=== PATIENT | female | born 1950 | race Caucasian/White ===

== ENCOUNTER → 2016-09-25 | Outpatient (CLI) | payer MEDICARE ==
[~2016-09-25] MED LIST: AMIO200T PO; DIOV80TA4 PO; GLIM2TAB PO; GLYB1TAB50 PO; HYDR12.57 PO; JANT4TAB PO; JANT5TAB PO; JANT6TAB PO; LEVO.075 PO; LOSA100T PO; LOVA1TAB47 PO; LOVA20TA PO; VITA200012 PO; VITA200017 OR
[2016-09-25 08:26] LABS: INTERNATIONAL NORMALIZED RATIO 1.7 RATIO; PROTHROMBIN TIME - PATIENT 19.6 SEC (9.8-11.6)
== END ==
LOC: CLAB 07:42
PROVIDERS: ATTEND Internal Medicine Interventional Cardiology
DX: I48.2 Chronic atrial fibrillation (principal); Z79.01 Long term (current) use of anticoagulants
CPT/HCPCS: 36415; 85610

== ENCOUNTER → 2016-10-08 | Outpatient (CLI) | payer MEDICARE ==
[2016-10-08 07:56] LABS: HEMATOCRIT 41.3 % (35.0-46.0); MEAN CORPUSCULAR HEMOGLOBIN 30.3 PG (27.0-34.0); MEAN CORPUSCULAR HGB CONC 32.9 % (32.0-36.0); PLATELET COUNT 302 TH/MM3 (150-450); RED BLOOD COUNT 4.49 MIL/MM3 (4.00-5.30); RED CELL DISTRIBUTION WIDTH 14.7 % (11.6-17.2); REVIEW FLAG FINAL; WHITE BLOOD COUNT 7.6 TH/MM3 (4.0-11.0)
[2016-10-08 07:57] LABS: INTERNATIONAL NORMALIZED RATIO 1.7 RATIO; PROTHROMBIN TIME - PATIENT 18.7 SEC (9.8-11.6)
[2016-10-08 08:16] LABS: BICARBONATE 27.8 MEQ/L (21.0-32.0); POTASSIUM 4.6 MEQ/L (3.5-5.1)
== END ==
LOC: CLAB 07:30
PROVIDERS: ATTEND Internal Medicine Interventional Cardiology
DX: R94.39 Abnormal result of other cardiovascular function study (principal); Z79.01 Long term (current) use of anticoagulants
CPT/HCPCS: 36415; 80048; 85027; 85610

== ENCOUNTER 2016-10-09 06:06 | Day surgery (SDC) | payer MEDICARE ==
[~2016-10-09] VITALS: Ht 160 cm; Wt 99.1 kg
[~2016-10-09 06:06] MED LIST changes: -GLIM2TAB PO; -JANT4TAB PO; -JANT5TAB PO; -LEVO.075 PO; -LOSA100T PO; -LOVA20TA PO; -VITA200012 PO
[2016-10-09] MEDS ORDERED: SODIUM CHLOR 0.9% 1000 ML INJ 1,000 ML IV SCH ×2 (06:13→08:08)
[2016-10-09] MEDS ORDERED: MIDAZOLAM HCL 2 MG/2 ML VIAL IV SCH (06:15)
[2016-10-09] MEDS ORDERED: diphenhydrAMINE HCL 50 MG/ML VIAL IV SCH (06:15)
[2016-10-09 06:37] VITALS: BP 182/85; PULSE 64; RESP 18; TEMP 98.3; O2SAT 92
[2016-10-09] MEDS ORDERED: GLIM2TAB PO (06:51)
[2016-10-09] MEDS ORDERED: VITA200012 PO (06:51)
[2016-10-09] MEDS ORDERED: JANT4TAB PO (06:51)
[2016-10-09] MEDS ORDERED: LEVO.075 PO (06:51)
[2016-10-09] MEDS ORDERED: JANT5TAB PO (06:51)
[2016-10-09] MEDS ORDERED: LOSA100T PO (06:51)
[2016-10-09] MEDS ORDERED: LOVA20TA PO (06:51)
[2016-10-09] MEDS ORDERED: HEPARIN-NS/PF INJ 500 ML ONE (07:17)
[2016-10-09] MEDS ORDERED: VERAPAMIL HCL 5 MG/2 ML VIAL ONE (07:18)
[2016-10-09] MEDS ORDERED: HEPARIN SODIUM - IV 10,000 UNITS/10 ML VIAL ONE (07:18)
[2016-10-09] MEDS ORDERED: MIDAZOLAM HCL 2 MG/2 ML VIAL ONE (07:20)
[2016-10-09] MEDS ORDERED: IOHEXOL 350 MG/ML 50 ML BTL (for Cath Lab) OTHER ONE (07:27)
[2016-10-09] MEDS ORDERED: MISC INFORMATION XX ONE (08:15)
[2016-10-09] MEDS ORDERED: BACITRACIN OINT 0.9 GM PKT TOP ONE (08:15)
[2016-10-09] MEDS ORDERED: SODIUM CHLORIDE 0.9% FLUSH 5 ML FLUSH IVF PRN (08:15)
[2016-10-09] MEDS ORDERED: SODIUM CHLORIDE 0.9% FLUSH 5 ML FLUSH IVF SCH (09:00)
--- NOTE | 2016-10-09 20:54 | EKG ---
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
--- NOTE | 2016-10-14 18:01 | MA ---
cc: JHOANA MASON M.D. PETE ROBERTS DATE: 10/09/2016 PROCEDURE PERFORMED Left heart catheterization. Coronary arteriography. PROCEDURE TECHNIQUE The patient was brought to the cardiac catheterization laboratory and the area of the right wrist and radial artery were prepped and draped in the usual sterile manner. Following 5 mL of 1% Xylocaine for local anesthesia the right radial artery was entered with a needle for placement of a Floppy guidewire. There was moderate difficulty due to the patient's previous surgical procedures and orthopedic surgery on her right forearm, but ultimately was able to place a short 6-Jordanian introducer sheath without difficulty. The dilator and guidewire were removed. Through the introducer sheath initially the cocktail of Verapamil, heparin and nitroglycerin was given. Through the sheath a 6-Jordanian Tig catheter was utilized for the left heart study. Multiple projections of left and right coronaries were taken. Left ventriculogram was deferred due to elevated creatinine and need to conserve contrast use. At completion of the diagnostic procedure the catheter and introducer were removed and adequate hemostasis was maintained with the use of a TR band device. The patient tolerated the procedure well. There were no immediate complications. She was transferred to the post catheterization in stable condition for discharge to home later today. HEMODYNAMIC DATA Left ventricle not entered. For complete hemodynamic details please see accompanying paperwork. ANGIOGRAPHIC FINDINGS Left ventricle not performed. Left ventricular ejection fraction was 65% by recent noninvasive studies without wall motion abnormalities. LEFT CORONARY ARTERY: Left main trunk: A very short vessel with early takeoff of the LAD and circumflex arteries. Normal. LEFT ANTERIOR DESCENDING ARTERY: The LAD is a moderate to large vessel whose course is to the apex. The LAD gives rise to multiple small diagonal and septal perforating branches. The LAD has moderate luminal irregularities. There is 25-30% eccentric stenosis noted in the midsegment beyond the major septal perforating branch. The first and second diagonal branches are very small in caliber. The third one is moderate in caliber and has an 80% proximal stenosis. LEFT CIRCUMFLEX ARTERY: Nondominant. The circumflex gives rise to a posterolateral branch and a posterior ventricular branch. The main circumflex is normal. The posterolateral branch and posterior ventricular branches are small to medium in caliber and have only mild irregularities. RIGHT CORONARY ARTERY: Dominant. The right coronary gives a large caliber vessel giving rise to a right ventricular marginal branch, posterior descending branch and a posterior ventricular branch. There are mild luminal irregularities throughout the main right coronary artery. There is an area of up to 10-15% eccentric stenosis at the junction of the proximal and mid thirds. The RV branch is small to medium in caliber and normal. The posterior descending branch and posterior ventricular branches are moderate in caliber with mild to moderate luminal irregularities. DIAGNOSIS 1. Severe single-vessel diagonal branch disease. 2. Normal left ventricular function by previous noninvasive studies. COMMENT/RECOMMENDATIONS Angiographically, this patient is a suitable candidate for continued aggressive medical therapy. Her medications will all be restarted on discharge today when ambulatory and stable. Follow-up has been arranged and the findings discussed with the patient and her family. MD ERVIN Flannery/JUNIOR /8:02 AM /5:49 PM ANDREW
== END 2016-10-09 12:33 | disposition home or self-care (01) ==
LOC: HDOC 06:06 → HDIC 06:07 → HDOC 12:33
PROVIDERS: ATTEND Internal Medicine Interventional Cardiology
DX: I25.10 Atherosclerotic heart disease of native coronary artery without angina pectoris (principal); I48.91 Unspecified atrial fibrillation; I10 Essential (primary) hypertension; E03.9 Hypothyroidism, unspecified; E78.00 Pure hypercholesterolemia, unspecified; Z79.01 Long term (current) use of anticoagulants
CPT/HCPCS: 93005; 93454; C1769; C1893; J1644; J2250; J3010; Q9967

== ENCOUNTER → 2016-10-21 | Outpatient (CLI) | payer MEDICARE ==
[~2016-10-21] MED LIST changes: -AMIO200T PO; -DIOV80TA4 PO; +GLIM2TAB PO; -GLYB1TAB50 PO; -HYDR12.57 PO; +JANT4TAB PO; +JANT5TAB PO; -JANT6TAB PO; +LEVO.075 PO; +LOSA100T PO; -LOVA1TAB47 PO; +LOVA20TA PO; +VITA200012 PO; -VITA200017 OR
[2016-10-21 08:22] LABS: INTERNATIONAL NORMALIZED RATIO 1.7 RATIO; PROTHROMBIN TIME - PATIENT 19.7 SEC (9.8-11.6)
== END ==
LOC: CLAB 07:38
PROVIDERS: ATTEND Internal Medicine Interventional Cardiology
DX: I48.2 Chronic atrial fibrillation (principal); Z79.01 Long term (current) use of anticoagulants
CPT/HCPCS: 36415; 85610

== ENCOUNTER → 2016-11-03 | Outpatient (CLI) | payer MEDICARE ==
[2016-11-03 09:02] LABS: INTERNATIONAL NORMALIZED RATIO 2.9 RATIO; PROTHROMBIN TIME - PATIENT 34.1 SEC (9.8-11.6)
== END ==
LOC: CLAB 08:09
PROVIDERS: ATTEND Internal Medicine Interventional Cardiology
DX: Z51.81 Encounter for therapeutic drug level monitoring (principal); I48.91 Unspecified atrial fibrillation; Z79.01 Long term (current) use of anticoagulants
CPT/HCPCS: 36415; 85610

== ENCOUNTER → 2016-11-10 | Outpatient (CLI) | payer MEDICARE ==
[2016-11-10 08:28] LABS: BICARBONATE 23.4 MEQ/L (21.0-32.0); FREE T4 1.28 NG/DL (0.76-1.46); POTASSIUM 4.3 MEQ/L (3.5-5.1)
== END ==
LOC: CLAB 07:38
DX: E11.65 Type 2 diabetes mellitus with hyperglycemia (principal); E03.9 Hypothyroidism, unspecified
CPT/HCPCS: 36415; 80048; 84439; 84443

== ENCOUNTER → 2016-11-17 | Outpatient (CLI) | payer MEDICARE ==
[2016-11-17 07:59] LABS: INTERNATIONAL NORMALIZED RATIO 2.1 RATIO; PROTHROMBIN TIME - PATIENT 24.3 SEC (9.8-11.6)
== END ==
LOC: CLAB 07:20
PROVIDERS: ATTEND Internal Medicine Interventional Cardiology
DX: I48.2 Chronic atrial fibrillation (principal); Z79.01 Long term (current) use of anticoagulants
CPT/HCPCS: 36415; 85610

== ENCOUNTER → 2016-12-08 | Outpatient (CLI) | payer MEDICARE ==
[2016-12-08 08:24] LABS: INTERNATIONAL NORMALIZED RATIO 2.3 RATIO; PROTHROMBIN TIME - PATIENT 26.3 SEC (9.8-11.6)
== END ==
LOC: CLAB 07:47
PROVIDERS: ATTEND Internal Medicine Interventional Cardiology
DX: I48.2 Chronic atrial fibrillation (principal); Z79.01 Long term (current) use of anticoagulants
CPT/HCPCS: 36415; 85610

== ENCOUNTER → 2016-12-19 | Outpatient (CLI) | payer MEDICARE ==
[2016-12-19 08:16] LABS: HEMATOCRIT 38.5 % (35.0-46.0); MEAN CELL VOLUME 89.3 FL (80.0-100.0); MEAN CORPUSCULAR HEMOGLOBIN 30.4 PG (27.0-34.0); PLATELET COUNT 279 TH/MM3 (150-450); RED BLOOD COUNT 4.31 MIL/MM3 (4.00-5.30); RED CELL DISTRIBUTION WIDTH 15.3 % (11.6-17.2); REVIEW FLAG FINAL; WHITE BLOOD COUNT 7.1 TH/MM3 (4.0-11.0)
[2016-12-19 08:40] LABS: ANION GAP 10 MEQ/L (5-15); AST (GOT) 14 U/L (15-37); BICARBONATE 27.1 MEQ/L (21.0-32.0); BLOOD UREA NITROGEN 27 MG/DL (7-18); CHLORIDE 99 MEQ/L (98-107); GLOMERULAR FILTRATION RATE 34 ML/MIN (>89); GLUCOSE,FASTING 156 MG/DL (74-99); POTASSIUM 3.9 MEQ/L (3.5-5.1); SODIUM (NA) 136 MEQ/L (136-145)
[2016-12-19 08:49] LABS: ALKALINE PHOSPHATASE 92 U/L (45-117); ALT (GPT) 16 U/L (10-53); FREE T4 1.22 NG/DL (0.76-1.46); LDL CHOLESTEROL 53 MG/DL (0-99); TOTAL BILIRUBIN ADULT 0.5 MG/DL (0.2-1.0)
[2016-12-19 17:23] LABS: HEMOGLOBIN A1a 0.9 %; HEMOGLOBIN A1b 2.1 %; HEMOGLOBIN Ao 80.8 %; HEMOGLOBIN LA1C 2.5 %; HEMOGLOBIN P3 4.9 %
== END ==
LOC: CLAB 08:01
PROVIDERS: ATTEND Family Medicine
DX: I12.9 Hypertensive chronic kidney disease with stage 1 through stage 4 chronic kidney disease, or unspecified chronic kidney disease (principal); N18.9 Chronic kidney disease, unspecified; E11.65 Type 2 diabetes mellitus with hyperglycemia; E11.22 Type 2 diabetes mellitus with diabetic chronic kidney disease; E78.4 Other hyperlipidemia; E03.9 Hypothyroidism, unspecified
CPT/HCPCS: 36415; 80053; 80061; 83036; 84439; 84443; 85027

== ENCOUNTER → 2017-01-05 | Outpatient (CLI) | payer MEDICARE ==
[2017-01-05 07:50] LABS: INTERNATIONAL NORMALIZED RATIO 2.6 RATIO; PROTHROMBIN TIME - PATIENT 29.7 SEC (9.8-11.6)
== END ==
LOC: CLAB 07:23
PROVIDERS: ATTEND Internal Medicine Interventional Cardiology
DX: I48.2 Chronic atrial fibrillation (principal); Z79.01 Long term (current) use of anticoagulants
CPT/HCPCS: 36415; 85610

== ENCOUNTER → 2017-02-06 | Outpatient (CLI) | payer MEDICARE ==
[2017-02-06 09:05] LABS: INTERNATIONAL NORMALIZED RATIO 2.7 RATIO; PROTHROMBIN TIME - PATIENT 31.4 SEC (9.8-11.6)
[2017-02-06 09:28] LABS: GLUCOSE,FASTING 137 MG/DL (74-99); THYROXINE (T4) 11.1 MCG/DL (4.8-13.9)
[2017-02-06 14:41] LABS: HEMOGLOBIN Ao 81.1 %; HEMOGLOBIN LA1C 2.4 %; HEMOGLOBIN P3 6.2 %
== END ==
LOC: CLAB 08:35
PROVIDERS: ATTEND Internal Medicine Interventional Cardiology
DX: I48.2 Chronic atrial fibrillation (principal); E11.65 Type 2 diabetes mellitus with hyperglycemia; E03.9 Hypothyroidism, unspecified; Z79.01 Long term (current) use of anticoagulants
CPT/HCPCS: 36415; 82947; 83036; 84436; 84443; 85610

== ENCOUNTER → 2017-02-20 | Outpatient (CLI) | payer MEDICARE ==
[2017-02-20 08:42] LABS: AUTOMATED NEUTROPHIL # 4.5 TH/MM3 (1.8-7.7); BASOPHIL # 0.1 TH/MM3 (0-0.2); BASOPHIL % 0.8 % (0.0-2.0); EOSINOPHIL # 0.3 TH/MM3 (0-0.4); EOSINOPHIL % 4.8 % (0.0-4.0); HEMATOCRIT 40.6 % (35.0-46.0); HEMO FLAGS DIFF FINAL; LYMPHOCYTE # 1.4 TH/MM3 (1.0-4.8); MEAN CELL VOLUME 90.7 FL (80.0-100.0); MEAN CORPUSCULAR HEMOGLOBIN 30.4 PG (27.0-34.0); MEAN CORPUSCULAR HGB CONC 33.5 % (32.0-36.0); MONO % 11.8 % (0.0-8.0); NEUT % 63.6 % (16.0-70.0); PLATELET COUNT 239 TH/MM3 (150-450); RED BLOOD COUNT 4.48 MIL/MM3 (4.00-5.30); RED CELL DISTRIBUTION WIDTH 14.7 % (11.6-17.2); WHITE BLOOD COUNT 7.1 TH/MM3 (4.0-11.0)
[2017-02-20 09:02] LABS: ANION GAP 5 MEQ/L (5-15); BICARBONATE 30.9 MEQ/L (21.0-32.0); BLOOD UREA NITROGEN 29 MG/DL (7-18); CHLORIDE 98 MEQ/L (98-107); GLOMERULAR FILTRATION RATE 31 ML/MIN (>89); GLUCOSE,FASTING 151 MG/DL (74-99); POTASSIUM 4.2 MEQ/L (3.5-5.1); SODIUM (NA) 134 MEQ/L (136-145)
[2017-02-20 09:05] LABS: LDL CHOLESTEROL 54 MG/DL (0-99)
[2017-02-20 09:10] LABS: MICRO ALBUMIN RANDOM URINE RAW 27.3 MG/L (0.0-30.0)
[2017-02-20 16:20] LABS: HEMOGLOBIN Ao 80.9 %; HEMOGLOBIN LA1C 2.6 %; HEMOGLOBIN P3 6.4 %
== END ==
LOC: CLAB 07:49
PROVIDERS: ATTEND Internal Medicine Nephrology
DX: N18.3 Chronic kidney disease, stage 3 (moderate) (principal); E11.22 Type 2 diabetes mellitus with diabetic chronic kidney disease
CPT/HCPCS: 36415; 80061; 80069; 82043; 83036; 85025

== ENCOUNTER → 2017-03-06 | Outpatient (CLI) | payer MEDICARE ==
[2017-03-06 08:11] LABS: INTERNATIONAL NORMALIZED RATIO 3.5 RATIO; PROTHROMBIN TIME - PATIENT 40.9 SEC (9.8-11.6)
== END ==
LOC: CLAB 07:39
PROVIDERS: ATTEND Internal Medicine Interventional Cardiology
DX: I48.2 Chronic atrial fibrillation (principal); Z79.01 Long term (current) use of anticoagulants
CPT/HCPCS: 36415; 85610

== ENCOUNTER → 2017-03-30 | Outpatient (CLI) | payer MEDICARE ==
[2017-03-30 13:39] LABS: INTERNATIONAL NORMALIZED RATIO 2.8 RATIO; PROTHROMBIN TIME - PATIENT 32.9 SEC (9.8-11.6)
== END ==
LOC: CLAB 13:11
PROVIDERS: ATTEND Internal Medicine Interventional Cardiology
DX: I48.2 Chronic atrial fibrillation (principal); Z79.01 Long term (current) use of anticoagulants
CPT/HCPCS: 36415; 85610

== ENCOUNTER → 2017-04-20 | Outpatient (CLI) | payer MEDICARE ==
[2017-04-20 08:38] LABS: INTERNATIONAL NORMALIZED RATIO 2.3 RATIO; PROTHROMBIN TIME - PATIENT 26.9 SEC (9.8-11.6)
== END ==
LOC: CLAB 08:07
PROVIDERS: ATTEND Internal Medicine Interventional Cardiology
DX: I48.2 Chronic atrial fibrillation (principal); Z79.01 Long term (current) use of anticoagulants
CPT/HCPCS: 36415; 85610

== ENCOUNTER → 2017-05-06 | Outpatient (CLI) | payer MEDICARE ==
[2017-05-06 08:34] LABS: MEAN CELL VOLUME 91.2 FL (80.0-100.0); MEAN CORPUSCULAR HEMOGLOBIN 31.6 PG (27.0-34.0); MEAN CORPUSCULAR HGB CONC 34.6 % (32.0-36.0); PLATELET COUNT 298 TH/MM3 (150-450); RED BLOOD COUNT 4.05 MIL/MM3 (4.00-5.30); RED CELL DISTRIBUTION WIDTH 14.7 % (11.6-17.2); REVIEW FLAG FINAL; WHITE BLOOD COUNT 7.3 TH/MM3 (4.0-11.0)
[2017-05-06 09:06] LABS: ANION GAP 9 MEQ/L (5-15); AST (GOT) 19 U/L (15-37); BICARBONATE 25.7 MEQ/L (21.0-32.0); BLOOD UREA NITROGEN 33 MG/DL (7-18); CHLORIDE 100 MEQ/L (98-107); GLOMERULAR FILTRATION RATE 28 ML/MIN (>89); GLUCOSE,FASTING 135 MG/DL (74-99); POTASSIUM 3.8 MEQ/L (3.5-5.1); SODIUM (NA) 135 MEQ/L (136-145)
[2017-05-06 09:07] LABS: ALT (GPT) 19 U/L (10-53)
[2017-05-06 09:17] LABS: ALKALINE PHOSPHATASE 104 U/L (45-117); HDL CHOLESTEROL 46.1 MG/DL (40.0-60.0); LDL CHOLESTEROL 44 MG/DL (0-99); TOTAL BILIRUBIN ADULT 0.4 MG/DL (0.2-1.0)
[2017-05-06 16:23] LABS: HEMOGLOBIN A1a 0.9 %; HEMOGLOBIN A1b 1.8 %; HEMOGLOBIN Ao 82.4 %; HEMOGLOBIN LA1C 2.1 %; HEMOGLOBIN P3 4.6 %
== END ==
LOC: CLAB 08:12
DX: E03.9 Hypothyroidism, unspecified (principal); H61.23 Impacted cerumen, bilateral; E78.4 Other hyperlipidemia; I48.91 Unspecified atrial fibrillation; I12.9 Hypertensive chronic kidney disease with stage 1 through stage 4 chronic kidney disease, or unspecified chronic kidney disease; N18.9 Chronic kidney disease, unspecified; E11.22 Type 2 diabetes mellitus with diabetic chronic kidney disease; E11.65 Type 2 diabetes mellitus with hyperglycemia
CPT/HCPCS: 36415; 80053; 80061; 83036; 84439; 84443; 85027

== ENCOUNTER → 2017-05-18 | Outpatient (CLI) | payer MEDICARE ==
[2017-05-18 08:24] LABS: INTERNATIONAL NORMALIZED RATIO 3.2 RATIO; PROTHROMBIN TIME - PATIENT 37.5 SEC (9.8-11.6)
== END ==
LOC: CLAB 07:45
PROVIDERS: ATTEND Internal Medicine Interventional Cardiology
DX: Z79.01 Long term (current) use of anticoagulants (principal)
CPT/HCPCS: 36415; 85610

== ENCOUNTER → 2017-06-08 | Outpatient (CLI) | payer MEDICARE ==
[2017-06-08 08:56] LABS: INTERNATIONAL NORMALIZED RATIO 2.8 RATIO; PROTHROMBIN TIME - PATIENT 32.5 SEC (9.8-11.6)
== END ==
LOC: CLAB 08:24
PROVIDERS: ATTEND Internal Medicine Interventional Cardiology
DX: Z79.01 Long term (current) use of anticoagulants (principal)
CPT/HCPCS: 36415; 85610

== ENCOUNTER → 2017-07-07 | Outpatient (CLI) | payer MEDICARE ==
[2017-07-07 08:49] LABS: PROTHROMBIN TIME - PATIENT 22.7 SEC (9.8-11.6)
== END ==
LOC: CLAB 08:19
PROVIDERS: ATTEND Internal Medicine Interventional Cardiology
DX: Z79.01 Long term (current) use of anticoagulants (principal)
CPT/HCPCS: 36415; 85610

== ENCOUNTER → 2017-08-12 | Outpatient (CLI) | payer MEDICARE ==
[2017-08-12 10:11] LABS: FREE T4 1.47 NG/DL (0.76-1.46)
[2017-08-12 10:24] LABS: ANION GAP 8 MEQ/L (5-15); BICARBONATE 26.6 MEQ/L (21.0-32.0); BLOOD UREA NITROGEN 23 MG/DL (7-18); CHLORIDE 100 MEQ/L (98-107); GLOMERULAR FILTRATION RATE 37 ML/MIN (>89); GLUCOSE,FASTING 119 MG/DL (74-99); POTASSIUM 3.7 MEQ/L (3.5-5.1); SODIUM (NA) 135 MEQ/L (136-145)
[2017-08-12 13:49] LABS: HEMOGLOBIN A1b 0.8 %; HEMOGLOBIN Ao 82.2 %; HEMOGLOBIN F 1.1 %; HEMOGLOBIN LA1C 2.2 %; HEMOGLOBIN P3 4.7 %
== END ==
LOC: CLAB 08:50
DX: E11.65 Type 2 diabetes mellitus with hyperglycemia (principal); E03.9 Hypothyroidism, unspecified
CPT/HCPCS: 36415; 80048; 83036; 84439; 84443

== ENCOUNTER → 2017-09-04 | Outpatient (CLI) | payer MEDICARE ==
[2017-09-04 08:55] LABS: INTERNATIONAL NORMALIZED RATIO 3.2 RATIO
[2017-09-04 09:05] LABS: HEMATOCRIT 39.5 % (35.0-46.0); HEMO FLAGS AUTO DIFF; MEAN CELL VOLUME 92.1 FL (80.0-100.0); MEAN CORPUSCULAR HEMOGLOBIN 31.1 PG (27.0-34.0); MEAN CORPUSCULAR HGB CONC 33.8 % (32.0-36.0); PLATELET COUNT 305 TH/MM3 (150-450); RED BLOOD COUNT 4.29 MIL/MM3 (4.00-5.30); RED CELL DISTRIBUTION WIDTH 14.3 % (11.6-17.2); WHITE BLOOD COUNT 7.9 TH/MM3 (4.0-11.0)
[2017-09-04 09:06] LABS: MICRO ALBUMIN RANDOM URINE RAW 66.4 MG/L (0.0-30.0)
[2017-09-04 09:36] LABS: BICARBONATE 27.5 MEQ/L (21.0-32.0); POTASSIUM 3.9 MEQ/L (3.5-5.1)
[2017-09-04 09:39] LABS: HDL CHOLESTEROL 53.1 MG/DL (40.0-60.0)
[2017-09-04 09:43] LABS: BASOPHILS 1 % (0-2); EOSINOPHILS 4 % (0-4); NEUTROPHIL # MANUAL DIFF 5.8 TH/MM3 (1.8-7.7); POLYS (SEG NEUTROPHILS) 74 % (16-70); WBC DIFF SAMPLE 100
[2017-09-04 09:44] LABS: PLATELET ESTIMATE SMEAR NORMAL (NORMAL); PLATELET MORPHOLOGY NORMAL (NORMAL); SCAN/DIFF FINAL DIFF MANUAL
== END ==
LOC: CLAB 08:07
PROVIDERS: ATTEND Internal Medicine Nephrology
DX: E11.29 Type 2 diabetes mellitus with other diabetic kidney complication (principal); N18.3 Chronic kidney disease, stage 3 (moderate); E55.9 Vitamin D deficiency, unspecified; Z79.01 Long term (current) use of anticoagulants
CPT/HCPCS: 36415; 80061; 80069; 82043; 83970; 85007; 85027; 85610

== ENCOUNTER → 2017-09-28 | Outpatient (CLI) | payer MEDICARE ==
[2017-09-28 09:10] LABS: INTERNATIONAL NORMALIZED RATIO 2.9 RATIO; PROTHROMBIN TIME - PATIENT 28.8 SEC (9.8-11.6)
== END ==
LOC: CLAB 08:36
PROVIDERS: ATTEND Internal Medicine Interventional Cardiology
DX: Z79.01 Long term (current) use of anticoagulants (principal)
CPT/HCPCS: 36415; 85610

== ENCOUNTER → 2017-11-11 | Outpatient (CLI) | payer MEDICARE ==
[2017-11-11 07:42] LABS: INTERNATIONAL NORMALIZED RATIO 2.7 RATIO; PROTHROMBIN TIME - PATIENT 27.7 SEC (9.8-11.6)
== END ==
LOC: CLAB 07:21
PROVIDERS: ATTEND Internal Medicine Interventional Cardiology
DX: Z79.01 Long term (current) use of anticoagulants (principal)
CPT/HCPCS: 36415; 85610

== ENCOUNTER → 2017-12-11 | Outpatient (CLI) | payer MEDICARE ==
[2017-12-11 09:05] LABS: INTERNATIONAL NORMALIZED RATIO 1.9 RATIO; PROTHROMBIN TIME - PATIENT 19.5 SEC (9.8-11.6)
[2017-12-11 09:55] LABS: BICARBONATE 25.8 MEQ/L (21.0-32.0); CALCIUM 8.5 MG/DL (8.5-10.1); CREATININE 1.76 MG/DL (0.50-1.00)
== END ==
LOC: CLAB 08:22
PROVIDERS: ATTEND Internal Medicine Interventional Cardiology
DX: I11.9 Hypertensive heart disease without heart failure (principal); I25.10 Atherosclerotic heart disease of native coronary artery without angina pectoris; R60.0 Localized edema; I48.2 Chronic atrial fibrillation; E66.09 Other obesity due to excess calories; Z79.01 Long term (current) use of anticoagulants
CPT/HCPCS: 36415; 80048; 85610

== ENCOUNTER → 2018-01-04 | Outpatient (CLI) | payer MEDICARE ==
[2018-01-04 08:21] LABS: INTERNATIONAL NORMALIZED RATIO 3.7 RATIO; PROTHROMBIN TIME - PATIENT 37.3 SEC (9.8-11.6)
[2018-01-04 09:00] LABS: BICARBONATE 30.6 MEQ/L (21.0-32.0); CALCIUM 10.6 MG/DL (8.5-10.1); CREATININE 1.79 MG/DL (0.50-1.00)
== END ==
LOC: CLAB 07:57
PROVIDERS: ATTEND Internal Medicine Interventional Cardiology
DX: E87.1 Hypo-osmolality and hyponatremia (principal); Z79.01 Long term (current) use of anticoagulants; Z79.899 Other long term (current) drug therapy
CPT/HCPCS: 36415; 80048; 85610

== ENCOUNTER → 2018-01-18 | Outpatient (CLI) | payer MEDICARE ==
[2018-01-18 08:43] LABS: INTERNATIONAL NORMALIZED RATIO 3.1 RATIO; PROTHROMBIN TIME - PATIENT 31.2 SEC (9.8-11.6)
[2018-01-18 08:54] LABS: HEMATOCRIT 41.6 % (35.0-46.0); HEMOGLOBIN 14.2 GM/DL (11.6-15.3); MEAN CELL VOLUME 90.3 FL (80.0-100.0); MEAN CORPUSCULAR HEMOGLOBIN 30.8 PG (27.0-34.0); MEAN CORPUSCULAR HGB CONC 34.1 % (32.0-36.0); MEAN PLATELET VOLUME 8.4 FL (7.0-11.0); PLATELET COUNT 223 TH/MM3 (150-450); RED CELL DISTRIBUTION WIDTH 14.3 % (11.6-17.2); WHITE BLOOD COUNT 6.8 TH/MM3 (4.0-11.0)
[2018-01-18 09:02] LABS: ALBUMIN 3.3 GM/DL (3.4-5.0); AST (GOT) 24 U/L (15-37); BICARBONATE 29.1 MEQ/L (21.0-32.0); BLOOD UREA NITROGEN 34 MG/DL (7-18); CALCIUM 9.4 MG/DL (8.5-10.1); CHLORIDE 93 MEQ/L (98-107); CHOLESTEROL 114 MG/DL (120-200); CREATININE 1.87 MG/DL (0.50-1.00); GLOMERULAR FILTRATION RATE 27 ML/MIN (>89); GLUCOSE,FASTING 148 MG/DL (74-99); SODIUM (NA) 131 MEQ/L (136-145); TRIGLYCERIDES 125 MG/DL (42-150)
[2018-01-18 09:08] LABS: ALKALINE PHOSPHATASE 89 U/L (45-117); ALT (GPT) 23 U/L (10-53); CHOLESTEROL/ HDL RATIO 2.27 RATIO; HDL CHOLESTEROL 50.1 MG/DL (40.0-60.0); LDL CHOLESTEROL 39 MG/DL (0-99); TOTAL BILIRUBIN ADULT 0.4 MG/DL (0.2-1.0); TOTAL PROTEIN 7.2 GM/DL (6.4-8.2)
[2018-01-18 10:51] LABS: HEMOGLOBIN A1C 8.9 % (4.3-6.0)
== END ==
LOC: CLAB 08:08
PROVIDERS: ATTEND Internal Medicine Interventional Cardiology
DX: E87.1 Hypo-osmolality and hyponatremia (principal); E78.4 Other hyperlipidemia; I12.9 Hypertensive chronic kidney disease with stage 1 through stage 4 chronic kidney disease, or unspecified chronic kidney disease; E11.22 Type 2 diabetes mellitus with diabetic chronic kidney disease; N18.9 Chronic kidney disease, unspecified; E03.9 Hypothyroidism, unspecified; E11.65 Type 2 diabetes mellitus with hyperglycemia; I48.91 Unspecified atrial fibrillation; Z79.01 Long term (current) use of anticoagulants
CPT/HCPCS: 36415; 80053; 80061; 83036; 84443; 85027; 85610

== ENCOUNTER → 2018-02-01 | Outpatient (CLI) | payer MEDICARE ==
[2018-02-01 09:27] LABS: INTERNATIONAL NORMALIZED RATIO 3.4 RATIO; PROTHROMBIN TIME - PATIENT 34.1 SEC (9.8-11.6)
== END ==
LOC: CLAB 08:55
PROVIDERS: ATTEND Internal Medicine Interventional Cardiology
DX: E78.1 Pure hyperglyceridemia (principal); Z79.01 Long term (current) use of anticoagulants; Z79.899 Other long term (current) drug therapy
CPT/HCPCS: 36415; 85610

== ENCOUNTER → 2018-02-16 | Outpatient (CLI) | payer MEDICARE ==
[~2018-02-16] MED LIST changes: +HYDR12.57 PO; +VITA2000 PO
[2018-02-16 09:40] LABS: BACTERIA, URINE OCC /hpf; BILIRUBIN, URINE NEG (NEG); BLOOD, URINE MOD (NEG); GLUCOSE,URINE NEG (NEG); KETONE, URINE NEG (NEG); NITRITE,URINE NEG (NEG); SQUAMOUS EPITHELIAL CELL URINE 2 /hpf (0-5); URINE COLOR LIGHT-YELLOW (YELLW/STRAW); URINE LEUKOCYTE ESTERASE LARGE (NEG)
[2018-02-16 10:03] LABS: AUTOMATED NEUTROPHIL # 5.3 TH/MM3 (1.8-7.7); BASOPHIL # 0.1 TH/MM3 (0-0.2); BASOPHIL % 0.8 % (0.0-2.0); EOSINOPHIL # 0.2 TH/MM3 (0-0.4); EOSINOPHIL % 2.9 % (0.0-4.0); HEMATOCRIT 39.2 % (35.0-46.0); HEMOGLOBIN 13.7 GM/DL (11.6-15.3); LYMPH % 12.6 % (9.0-44.0); LYMPHOCYTE # 0.9 TH/MM3 (1.0-4.8); MEAN CELL VOLUME 89.5 FL (80.0-100.0); MEAN CORPUSCULAR HEMOGLOBIN 31.2 PG (27.0-34.0); MEAN CORPUSCULAR HGB CONC 34.9 % (32.0-36.0); MEAN PLATELET VOLUME 7.9 FL (7.0-11.0); MONO % 11.6 % (0.0-8.0); MONOCYTE # 0.9 TH/MM3 (0-0.9); NEUT % 72.1 % (16.0-70.0); PLATELET COUNT 292 TH/MM3 (150-450); RED BLOOD COUNT 4.38 MIL/MM3 (4.00-5.30); RED CELL DISTRIBUTION WIDTH 14.1 % (11.6-17.2); WHITE BLOOD COUNT 7.4 TH/MM3 (4.0-11.0)
[2018-02-16 10:12] LABS: PROTHROMBIN TIME - PATIENT 40.3 SEC (9.8-11.6)
[2018-02-16 10:26] LABS: ALBUMIN 3.3 GM/DL (3.4-5.0); ALT (GPT) 19 U/L (10-53); AST (GOT) 22 U/L (15-37); BICARBONATE 29.8 MEQ/L (21.0-32.0); BLOOD UREA NITROGEN 24 MG/DL (7-18); CALCIUM 9.4 MG/DL (8.5-10.1); CHLORIDE 90 MEQ/L (98-107); CREATININE 1.63 MG/DL (0.50-1.00); GLOMERULAR FILTRATION RATE 31 ML/MIN (>89); GLUCOSE,FASTING 106 MG/DL (74-99); SODIUM (NA) 130 MEQ/L (136-145)
[2018-02-16 10:28] LABS: ALKALINE PHOSPHATASE 100 U/L (45-117); TOTAL BILIRUBIN ADULT 0.6 MG/DL (0.2-1.0); TOTAL PROTEIN 7.2 GM/DL (6.4-8.2)
== END ==
LOC: CPRE 08:09
PROVIDERS: ATTEND Surgery
DX: Z01.812 Encounter for preprocedural laboratory examination (principal); M79.609 Pain in unspecified limb; B96.1 Klebsiella pneumoniae [K. pneumoniae] as the cause of diseases classified elsewhere; R82.90 Unspecified abnormal findings in urine
CPT/HCPCS: 36415; 80053; 81001; 85025; 85610; 85730; 87077; 87086; 87186

== ENCOUNTER → 2018-02-17 | Outpatient (CLI) | payer MEDICARE ==
[~2018-02-17] MED LIST changes: -JANT5TAB PO; -VITA200012 PO
[2018-02-17 09:48] LABS: INTERNATIONAL NORMALIZED RATIO 3.6 RATIO; PROTHROMBIN TIME - PATIENT 36.4 SEC (9.8-11.6)
== END ==
LOC: CLAB 08:21
PROVIDERS: ATTEND Internal Medicine Endocrinology, Diabetes & Metabolism
DX: E87.1 Hypo-osmolality and hyponatremia (principal); E11.65 Type 2 diabetes mellitus with hyperglycemia; Z79.01 Long term (current) use of anticoagulants
CPT/HCPCS: 36415; 83930; 83935; 84378; 85610

== ENCOUNTER 2018-02-22 07:07 | Inpatient (IN) | payer MEDICARE ==
--- NOTE | 2018-02-18 15:43 | MH ---
cc: Roya Sharp MD DATE OF ADMISSION: 02/22/2018 DATE OF ADMISSION FOR SURGERY: 02/22/2018 ADMITTING DIAGNOSIS: Osteoarthritic degeneration, left knee, now being admitted for left total knee arthroplasty. HISTORY OF PRESENT ILLNESS: This pleasant 67-year-old diabetic female is being admitted today for left total knee arthroplasty due to severe painful osteoarthritic degeneration, left knee. OTHER PAST MEDICAL HISTORY: The patient has history of diabetes and hypertension and heart disease. CURRENT MEDICATIONS: Include: 1. Glimepiride. 2. Lovastatin. 3. Levothyroxine. 4. Losartan/hydrochlorothiazide. 5. The Coumadin or Jantoven was stopped on 02/17/2018. PAST SURGICAL HISTORY: Includes cataract surgery and open reduction, internal fixation right forearm fracture. REVIEW OF SYSTEMS: Noncontributory. FAMILY HISTORY: Noncontributory. SOCIAL HISTORY: She does not smoke, does not drink. ALLERGIES: CARDURA and LISINOPRIL. PHYSICAL EXAMINATION: GENERAL: We find a 67-year-old female, well-developed, well-nourished, oriented x3, complaining of pain in her left knee. VITAL SIGNS: Blood pressure 142/70, pulse 67 and regular, respirations 16, temperature 98.1, pulse oximetry 96% on room air. HEENT: Eyes: PERRLA, EOMI. Ears, nose and mouth clear. NECK: Supple. LUNGS: Clear. HEART: Regular rate. ABDOMEN: Soft, positive bowel sounds, nontender. EXTREMITIES: Reveal her left knee to have crepitance on range of motion. She is neurovascularly intact to her toes. IMPRESSION AT THIS TIME: Severe painful osteoarthritic degeneration, left knee. PLAN: Admission for a left total knee arthroplasty today. The patient did test positive for a urinary tract infection, Klebsiella pneumoniae over 100,000 colony count this past weekend has been on Cipro 500 mg b.i.d. since then and will need to have a STAT urine done prior to surgery. Also, she had stopped her Coumadin on 02/17/2018. Before her Coumadin was stopped, she had a Pro-Time and INR which were both elevated and she will need a STAT pro-time, INR and PTT prior to surgery on Thursday. She was given a prescription for postop pain control in the office. Plans on going to a rehab center after surgical intervention. J. MD DAIANA Gardner/MANA , 03:27 PM , 03:42 PM
[~2018-02-22] VITALS: Ht 160 cm; Wt 91.6 kg
[~2018-02-22 07:07] MED LIST changes: +JANT5TAB PO; +VITA200012 PO
[2018-02-22] MEDS ORDERED: VANCOMYCIN 1 GM/200 ML INJ 200 ML IV ONE (07:31)
[2018-02-22] MEDS ORDERED: DEXAMETHASONE SOD PHOS 20 MG/5 ML VIAL ONE (07:33)
[2018-02-22 07:35] VITALS: BP 144/64; RESP 18; TEMP 97.7; O2SAT 97
[2018-02-22] MEDS ORDERED: SODIUM CHLORID 0.9% 500 ML IV PRN (07:45)
[2018-02-22] MEDS ORDERED: POVIDONE IODINE 5% (ANTISEPSIS KIT) 4 APPLICATIONS EACH NARE PRN (07:45)
[2018-02-22] MEDS ORDERED: METOPROLOL TARTRATE 25 MG TAB PO PRN (07:45)
[2018-02-22] MEDS ORDERED: VANCOMYCIN 1 GM/200 ML PREMIX IV SCH (07:45)
[2018-02-22] MEDS ORDERED: DEXAMETHASONE SOD PHOS 20 MG/5 ML VIAL IV PUSH SCH (07:45)
[2018-02-22] MEDS ORDERED: CHLORHEXIDINE GLUCONATE 4% SOLN 120 ML BTL TOPICAL SCH (07:45)
[2018-02-22] MEDS ORDERED: ceFAZolin 2 GM PREMIX 50 ML IV SCH (07:45)
[2018-02-22] MEDS ORDERED: LACTATED RINGER'S 1000 ML IV PRN (07:45)
[2018-02-22] MEDS ORDERED: CHLORHEXIDINE GLUCONATE 2 % 1 PACK (2 CLOTHS) TOPICAL PRN (07:45)
[2018-02-22 08:24] LABS: BILIRUBIN, URINE NEG (NEG); BLOOD, URINE SMALL (NEG); GLUCOSE,URINE NEG (NEG); KETONE, URINE NEG (NEG); NITRITE,URINE NEG (NEG); PH, URINE 6.5 (5.0-8.5); SQUAMOUS EPITHELIAL CELL URINE 1 /hpf (0-5); URINE COLOR YELLOW (YELLW/STRAW); URINE LEUKOCYTE ESTERASE TRACE (NEG)
[2018-02-22 08:31] LABS: INTERNATIONAL NORMALIZED RATIO 1.5 RATIO; PROTHROMBIN TIME - PATIENT 15.3 SEC (9.8-11.6)
[2018-02-22] MEDS ORDERED: ceFAZolin INJ 1,000 MG VIAL ONE (08:47)
[2018-02-22 08:52] VITALS: PULSE 47
[2018-02-22 08:55] VITALS: PULSE 40
[2018-02-22] MEDS ORDERED: TRANEXAMIC ACID IV SCH ×2 (09:00→12:00)
[2018-02-22] MEDS ORDERED: SODIUM CHLORIDE 0.9% IV SCH ×2 (09:00→12:00)
[2018-02-22] MEDS ORDERED: BUPIVACAINE LIPOSO PF 1.3% INJ 20 ML, BUPIVACAINE PF 0.25% INJ 20 ML in SODIUM CHLORIDE... P-ARTICULR SCH (09:00)
[2018-02-22 09:06] VITALS: PULSE 34
--- NOTE | 2018-02-22 12:21 | EKG ---
Date Performed: 02/22/2018 Time Performed: 09:14:43 PTAGE: 67 years EKG: ATRIAL FIBRILLATION WITH SLOW VENTRICULAR RESPONSE MARKED LEFT AXIS DEVIATION RIGHT BUNDLE BRANCH BLOCK POSSIBLE LEFT VENTRICULAR HYPERTROPHY MODERATE T-WAVE ABNORMALITY, CONSIDER LATERAL ISCH EMIA MODERATE T-WAVE ABNORMALITY, CONSIDER INFERIOR ISCHEMIA Compared to previous tracing T wave inve rsion in the anterior precordial leads is more prominent ABNORMAL ECG PREVIOUS TRACING : 10/09/2016 06.49 DOCTOR: Pablito Duarte Interpretating Date/Time 02/22/2018 12:20:14
== END 2018-02-22 09:40 | disposition short-term general hospital (02) | DRG 554 ==
LOC: HSDI 07:07
PROVIDERS: ADMIT Surgery; ATTEND Surgery
DX: M17.12 Unilateral primary osteoarthritis, left knee (principal); I10 Essential (primary) hypertension; E11.9 Type 2 diabetes mellitus without complications; Z53.8 Procedure and treatment not carried out for other reasons; R00.1 Bradycardia, unspecified
CPT/HCPCS: 81001; 85610; 85730; 86850; 86900; 86901; 93005; 99211; G0463; J0690; J1100; J3370; J7120

== ENCOUNTER 2018-02-22 09:54 | Emergency (ER) | payer MEDICARE ==
[~2018-02-22] VITALS: Ht 160 cm; Wt 92.0 kg
[~2018-02-22 09:54] MED LIST changes: -JANT5TAB PO; -VITA200012 PO
[2018-02-22 10:03] VITALS: BP 167/68; PULSE 45; RESP 16; TEMP 97.6; O2SAT 100
--- NOTE | 2018-02-22 11:08 | RADRPT ---
EXAM DATE: 02/22/2018 10:48 AM EDT AGE/SEX: 67 years / Female INDICATIONS: Shortness of breath. Low-heart rate. CLINICAL DATA: This is the patient's initial encounter. Patient reports that signs and symptoms have been present for 1 day and indicates a pain score of 0/10. MEDICAL/SURGICAL HISTORY: Hypertension. Diabetes mellitus type II. None. COMPARISON: TLI, XR CHEST PA AND LAT, 10/07/2016. . FINDINGS: A single AP view of the chest demonstrates the lungs to be symmetrically aerated with a 5 mm granulom atous type calcification in the right upper lung. Lungs are otherwise clear. Old healed fracture defo rmity of the posterior lateral left mid chest rib. Heart size is normal. CONCLUSION: 1. Stable chest with old granulomatous type calcification in the right upper lobe. Old fracture defo rmities in the posterior lateral left mid chest. 2. No acute infiltrate. Electronically signed by: Edwin Saenz MD 02/22/2018 11:06 AM EDT
[2018-02-22 11:19] LABS: AUTOMATED NEUTROPHIL # 5.1 TH/MM3 (1.8-7.7); BASOPHIL % 0.5 % (0.0-2.0); EOSINOPHIL # 0.2 TH/MM3 (0-0.4); EOSINOPHIL % 2.5 % (0.0-4.0); HEMATOCRIT 37.3 % (35.0-46.0); HEMOGLOBIN 12.8 GM/DL (11.6-15.3); LYMPH % 13.2 % (9.0-44.0); LYMPHOCYTE # 0.9 TH/MM3 (1.0-4.8); MEAN CELL VOLUME 89.6 FL (80.0-100.0); MEAN CORPUSCULAR HEMOGLOBIN 30.8 PG (27.0-34.0); MEAN CORPUSCULAR HGB CONC 34.4 % (32.0-36.0); MEAN PLATELET VOLUME 8.5 FL (7.0-11.0); MONO % 12.5 % (0.0-8.0); MONOCYTE # 0.9 TH/MM3 (0-0.9); NEUT % 71.3 % (16.0-70.0); PLATELET COUNT 252 TH/MM3 (150-450); RED BLOOD COUNT 4.16 MIL/MM3 (4.00-5.30); RED CELL DISTRIBUTION WIDTH 14.2 % (11.6-17.2); WHITE BLOOD COUNT 7.1 TH/MM3 (4.0-11.0)
[2018-02-22 11:59] LABS: ALBUMIN 3.4 GM/DL (3.4-5.0); ALKALINE PHOSPHATASE 91 U/L (45-117); ALT (GPT) 25 U/L (10-53); AST (GOT) 35 U/L (15-37); BICARBONATE 22.6 MEQ/L (21.0-32.0); BLOOD UREA NITROGEN 28 MG/DL (7-18); CALCIUM 8.9 MG/DL (8.5-10.1); CHLORIDE 88 MEQ/L (98-107); CREATININE 2.11 MG/DL (0.50-1.00); GLOMERULAR FILTRATION RATE 23 ML/MIN (>89); GLUCOSE,RANDOM 100 MG/DL (74-106); TOTAL BILIRUBIN ADULT 0.8 MG/DL (0.2-1.0); TROPONIN I LESS THAN 0.02 NG/ML (0.02-0.05)
[2018-02-22 12:07] LABS: SODIUM (NA) 124 MEQ/L (136-145)
[2018-02-22] MEDS ORDERED: SODIUM CHLORID 0.9% 500 ML INJ 500 ML IV ONE (12:15)
[2018-02-22 14:00] VITALS: BP 123/57; PULSE 45; RESP 15; O2SAT 100
[2018-02-22 14:40] LABS: BICARBONATE 22.8 MEQ/L (21.0-32.0); CALCIUM 8.3 MG/DL (8.5-10.1); CREATININE 2.02 MG/DL (0.50-1.00)
--- NOTE | 2018-02-22 14:42 | PD ---
HPI Chief Complaint: Cardiac Complaint Time Seen by Provider: 10:26 Travel History International Travel<30 days: No Contact w/Intl Traveler<30days: No Traveled to known affect area: No History of Present Illness HPI Patient is a 67 year old female who comes in from same day surgery, where she was supposed to have surgery on her knee, due to bradycardia. She has history of afib, but has not had issues with bradycardia in the past. She denies any symptoms. She denies chest pain, SOB, or dizziness. She says she has never felt her heart rate change, even when in afib. Severity is mild. PFSH Past Medical History Hx Anticoagulant Therapy: Yes Cancer: No Cardiovascular Problems: Yes High Cholesterol: Yes Chest Pain: No Congestive Heart Failure: Yes Diabetes: Yes Patient Takes Glucophage: No Endocrine: Yes Gastrointestinal Disorders: No Glaucoma: No Genitourinary: Yes (KIDNEY LEVELS NOT WNL --2008, STAGE 3 KIDNEY DISEASE) Hepatitis: No Hiatal Hernia: No Hypertension: Yes Immune Disorder: No Medical other: Yes (SKULL FRACTURE-1969.OCC. DIZZINESS UPON GETTING UP, BLOOD TRANSFUSION) Neurologic: No Psychiatric: No Reproductive: No Respiratory: Yes Integumentary: No Immunizations Current: No Thyroid Disease: Yes (hypo) Tetanus Vaccination: Unknown Influenza Vaccination: No ?: Not Menopausal: Yes Past Surgical History Abdominal Surgery: No AICD: No Cardiac Surgery: Yes (cath 2016) Ear Surgery: No Endocrine Surgery: No Eye Surgery: Yes (bilateral CATARACT SURGERY) Genitourinary Surgery: No Gynecologic Surgery: No Joint Replacement: No Oral Surgery: No Pacemaker: No Thoracic Surgery: No Other Surgery: Yes (SKULL FX/REPAIR; RT FOREARM) Social History Alcohol Use: No Tobacco Use: No Substance Use: No Allergies-Medications (Allergen,Severity, Reaction): Coded Allergies: doxazosin (Unverified Allergy, Severe, ALTER VISION, 02/22/18) lisinopril (Unverified Adverse Reaction, Severe, Cough, 02/22/18) Reported Meds & Prescriptions Reported Meds & Active Scripts Active Reported Hydrochlorothiazide 12.5 Mg Cap 12.5 Mg PO DAILY Vitamin D3 (Cholecalciferol) 2,000 Unit Cap 2,000 Units PO DAILY Glimepiride 2 Mg Tab 2 Mg PO BIDAC Synthroid (Levothyroxine Sodium) 75 Mcg Tab 75 Mcg PO DAILY Lovastatin 20 Mg Tab 20 Mg PO DAILY Losartan (Losartan Potassium) 100 Mg Tab 100 Mg PO DAILY Jantoven (Warfarin) 4 Mg Tab 4 Mg PO DAILY Review of Systems Except as stated in HPI: all other systems reviewed are Neg General / Constitutional: No: Fever, Chills Eyes: No: Blurred Vision HENT: No: Headaches, Lightheadedness Cardiovascular: No: Chest Pain or Discomfort, Palpitations Respiratory: No: Shortness of Breath Gastrointestinal: No: Nausea, Vomiting Skin: No Rash, No Change in Pigmentation Neurologic: No: Weakness, Dizziness Physical Exam Narrative GENERAL: Awake and alert, in no acute distress. SKIN: Focused skin assessment warm/dry. HEAD: Atraumatic. Normocephalic. EYES: Pupils equal and round. No scleral icterus. ENT: Mucous membranes pink and moist. NECK: Trachea midline. No JVD. CARDIOVASCULAR: Bradycardia. No murmur appreciated. RESPIRATORY: No accessory muscle use. Clear to auscultation. Breath sounds equal bilaterally. GASTROINTESTINAL: Abdomen soft, non-tender, nondistended. MUSCULOSKELETAL: No obvious deformities. No clubbing. No cyanosis. NEUROLOGICAL: Awake and alert. No obvious cranial nerve deficits. Motor grossly within normal limits. Normal speech. PSYCHIATRIC: Appropriate mood and affect; insight and judgment normal. Data Data Last Documented VS Vital Signs Date Time Temp Pulse Resp B/P (MAP) Pulse Ox O2 Delivery O2 Flow Rate FiO2 02/22/18 14:00 45 15 123/57 (79) 100 02/22/18 10:03 97.6 Orders Orders Complete Blood Count With Diff (02/22/18 10:37) Comprehensive Metabolic Panel (02/22/18 10:37) Troponin I (02/22/18 10:37) Chest, Single Ap (02/22/18 ) Sodium Chlorid 0.9% 500 Ml Inj (Ns 500 M (02/22/18 12:15) Basic Metabolic Panel (Bmp) (02/22/18 13:04) Ed Discharge Order (02/22/18 14:47) Labs Laboratory Tests Test 02/22/18 10:15 02/22/18 13:50 White Blood Count 7.1 TH/MM3 Red Blood Count 4.16 MIL/MM3 Hemoglobin 12.8 GM/DL Hematocrit 37.3 % Mean Corpuscular Volume 89.6 FL Mean Corpuscular Hemoglobin 30.8 PG Mean Corpuscular Hemoglobin Concent 34.4 % Red Cell Distribution Width 14.2 % Platelet Count 252 TH/MM3 Mean Platelet Volume 8.5 FL Neutrophils (%) (Auto) 71.3 % Lymphocytes (%) (Auto) 13.2 % Monocytes (%) (Auto) 12.5 % Eosinophils (%) (Auto) 2.5 % Basophils (%) (Auto) 0.5 % Neutrophils # (Auto) 5.1 TH/MM3 Lymphocytes # (Auto) 0.9 TH/MM3 Monocytes # (Auto) 0.9 TH/MM3 Eosinophils # (Auto) 0.2 TH/MM3 Basophils # (Auto) 0.0 TH/MM3 CBC Comment DIFF FINAL Differential Comment Blood Urea Nitrogen 28 MG/DL 26 MG/DL Creatinine 2.11 MG/DL 2.02 MG/DL Random Glucose 100 MG/DL 90 MG/DL Total Protein 7.0 GM/DL Albumin 3.4 GM/DL Calcium Level 8.9 MG/DL 8.3 MG/DL Alkaline Phosphatase 91 U/L Aspartate Amino Transf (AST/SGOT) 35 U/L Alanine Aminotransferase (ALT/SGPT) 25 U/L Total Bilirubin 0.8 MG/DL Sodium Level 124 MEQ/L 127 MEQ/L Potassium Level 3.8 MEQ/L 3.6 MEQ/L Chloride Level 88 MEQ/L 92 MEQ/L Carbon Dioxide Level 22.6 MEQ/L 22.8 MEQ/L Anion Gap 13 MEQ/L 12 MEQ/L Estimat Glomerular Filtration Rate 23 ML/MIN 25 ML/MIN Troponin I LESS THAN 0.02 NG/ML MDM Medical Decision Making Medical Screen Exam Complete: Yes Emergency Medical Condition: Yes Medical Record Reviewed: Yes Interpretation(s) ECG shows sinus bradycardia. No ST elevation or depression. Differential Diagnosis bradycardia vs dehydration vs electrolyte abnormalities Narrative Course Patient is a 67 year old female who comes in due to bradycardia. She is completely asymptomatic and has no complaints. IV established, labs sent. Patient is hyponatremic to 124. She has been hyponatremic in the past. Given IVF with improvement to 127. I spoke with her nuclear power reactor operator Dr. Wiseman who says she can be discharged and he will see her in the office now to place a Holter Monitor. Patient is agreeable to this plan. Advised to return for any worsening symptoms. Diagnosis Primary Impression: Bradycardia Additional Impression: Hyponatremia Patient Instructions: Bradycardia (ED), General Instructions Additional Instructions: Follow up with Dr. Wiseman in his office. Return at any time for any worsening symptoms. Disposition: 01 DISCHARGE HOME Condition: Stable Eliana Curiel MD Feb 22, 2018 14:42
== END 2018-02-22 15:25 | disposition home or self-care (01) ==
LOC: NEPE 09:54
DX: R00.1 Bradycardia, unspecified (principal); E87.1 Hypo-osmolality and hyponatremia; I11.0 Hypertensive heart disease with heart failure; I50.9 Heart failure, unspecified; I48.91 Unspecified atrial fibrillation; E78.00 Pure hypercholesterolemia, unspecified; E11.9 Type 2 diabetes mellitus without complications; Z79.01 Long term (current) use of anticoagulants; Z79.899 Other long term (current) drug therapy
CPT/HCPCS: 71045; 80053; 84484; 85025; 96360; 99284; J7040; 80048

== ENCOUNTER → 2018-03-01 | Outpatient (CLI) | payer MEDICARE ==
[2018-03-01 08:12] LABS: BICARBONATE 25.5 MEQ/L (21.0-32.0); CALCIUM 8.4 MG/DL (8.5-10.1); CREATININE 1.68 MG/DL (0.50-1.00)
== END ==
LOC: CLAB 07:18
PROVIDERS: ATTEND Internal Medicine Interventional Cardiology
DX: E87.1 Hypo-osmolality and hyponatremia (principal)
CPT/HCPCS: 36415; 80048

== ENCOUNTER → 2018-03-17 | Outpatient (CLI) | payer MEDICARE ==
[2018-03-17 10:36] LABS: BICARBONATE 27.5 MEQ/L (21.0-32.0); CALCIUM 8.7 MG/DL (8.5-10.1); CREATININE 1.56 MG/DL (0.50-1.00)
== END ==
LOC: CLAB 08:46
PROVIDERS: ATTEND Internal Medicine Interventional Cardiology
DX: I48.2 Chronic atrial fibrillation (principal); Z79.899 Other long term (current) drug therapy
CPT/HCPCS: 36415; 80048

== ENCOUNTER 2018-03-29 07:55 | Inpatient (IN) ==
[2018-03-29] MEDS ORDERED: Dexamethasone PF Inj 10 MG/ML Vial ONE (08:48)
[2018-03-29] MEDS ORDERED: Vancomycin Inj 1 GM/200 ML PIGGYBACK IV.SIG ONE (08:48)
[2018-03-29] MEDS ORDERED: Bupivacaine PF 0.25% Inj 30 ML Vial ONE (09:34)
[2018-03-29] MEDS ORDERED: Bupivacaine Liposomal PF 1.3% Inj 20 ML Vial ONE (09:34)
[2018-03-29 09:40] LABS: INR 1.3 Ratio; Prothrombin Time 13.5 sec (9.8-11.6)
[2018-03-29] MEDS ORDERED: Metoprolol Tartrate 25 MG Tablet PO SCH (10:30)
[2018-03-29] MEDS ORDERED: Chlorhexidine Gluconate 2% 1 Pack (2 Cloths) TOPICAL SCH (10:30)
[2018-03-29] MEDS ORDERED: Dexamethasone Inj 20 MG/5 ML Vial IV.PUSH ONE (10:36)
[2018-03-29] MEDS ORDERED: SODIUM CHLOR 0.9% IV.SIG SCH ×2 (11:00→14:00)
[2018-03-29] MEDS ORDERED: Vancomycin Inj 1 GM/200 ML PIGGYBACK IV.SIG SCH (11:00)
[2018-03-29] MEDS ORDERED: TRANEXAMIC ACID IV.SIG SCH ×2 (11:00→14:00)
[2018-03-29] MEDS ORDERED: Sodium Chlor 0.9% Inj 500 ML IV.SIG SCH (11:00)
[2018-03-29] MEDS ORDERED: ceFAZolin 2 GM Premix Inj 2 GM/50 ML PIGGYBACK IV.SIG SCH (11:00)
[2018-03-29] MEDS ORDERED: Sodium Chlor 0.9% Inj 80 ML, Bupivacaine Liposo PF 1.3% Inj 20 ML, Bupivacaine PF 0.25%... P-ARTICULR SCH ×3 (11:00)
[2018-03-29] MEDS ORDERED: Tranexamic Acid Inj 1,000 MG in Sodium Chlor 0.9% Inj 100 ML IV.SIG ONE (11:34)
[2018-03-29] MEDS ORDERED: Bisacodyl 10 MG Supp RECTAL PRN (11:34)
[2018-03-29] MEDS ORDERED: Morphine Inj 4 MG/ML Vial IV.PUSH PRN (11:34)
[2018-03-29] MEDS ORDERED: Post-op Orders (for Pharmacy) OTHER STA (11:34)
[2018-03-29] MEDS ORDERED: Glycopyrrolate Inj 1 MG/5 ML Syringe IV.PUSH ONE (12:00)
[2018-03-29] MEDS ORDERED: Phenylephrine/NS 1000 MCG/10ML Syringe IV.PUSH ONE (12:00)
[2018-03-29] MEDS ORDERED: Tobramycin Sulfate 1,200 MG Vial (for ortho/sterile core) OTHER ONE (13:06)
--- NOTE | 2018-03-29 14:56 | MP ---
cc: Roya Sharp MD DATE OF OPERATION: 03/29/2018 PREOPERATIVE DIAGNOSIS: Osteoarthritic degeneration, left knee. POSTOPERATIVE DIAGNOSIS: Osteoarthritic degeneration, left knee. PROCEDURE PERFORMED: Left total knee arthroplasty using Consensus components, size 3 femur, 1 tibia, 1 patella, 10 insert standard with 2 batches of DePuy antibiotic impregnated cement. SURGEON: MD Aron MOBILE UI DESIGNER(S): PETR Becker ANESTHESIA: Spinal. PROCEDURE: After successful induction of anesthesia, the patient is placed on the operating room table in the supine position. The knee is prepped and draped in the usual manner. A tourniquet is inflated at the upper thigh and set to 300 mmHg pressure after exsanguination of the lower extremity. A longitudinal incision is made extending from 3 inches proximal to the superior pole of the patella, across the patella in longitudinal fashion, and down past the insertion of the tibial tubercle into the proximal tibia. The incision is carried down through subcutaneous tissue along the medial aspect of the patella and retinaculum, down through the capsule to expose the knee joint. The patella and patellar tendon are freed up enough to allow the patella to be inverted and retracted off the lateral side of the knee joint. The knee joint is left exposed. Small osteophytes are removed. All soft tissue is removed to allow proper position of the femoral and tibial cutting jig guide. The first femoral jig is then inserted along the distal end of the femur after first measuring to decide whether this is a small, medium, or large component. The notch is then drilled and the tibial cutting guide inserted into the femoral cutting guide, along with the ankle brace to allow for proper measurement of the tibial cutting surface that needed to be resected. Pins are inserted into the tibial cutting jig and femoral cutting jig to hold them in place. An oscillating saw is then used to resect the surface of the tibia. The surface of the tibia is then completely removed using sharp and blunt dissection. The anterior and posterior cuts of the femur are then made as well using an oscillating saw through the cutting guide. All guides are then removed and the varus/valgus angulation cutting guide applied to the femur for proper measurement of the proper amount of valgus. The anterior cutting guide for the femur is then inserted at the anterior femoral cuts made. Next, the first block trial is inserted into the femur to allow for proper condyle drill holes to be made which are then made followed by removal of the bone between the condyles using an oscillating saw as well as the bone removed at the most posterior surface of the condyle. After this, this guide is removed and the chamfer cuts made using the chamfer cutting guide from both anterior and posterior. Next, the femoral trial is then inserted, the tibial surface reflected anterior to expose the tibial surface and a tibial stem guide is inserted after first measuring for a standard, standard plus, large, or large plus surface to be used. After the stem is impacted the trial tibial surface is applied followed by the trial meniscal components. After full range of motion is found with the appropriate length meniscal components varying the patella is prepared by resecting the posterior aspect of the patella using an oscillating saw, inserting a trial. The trial is then removed and the cruciate cutting guide applied using the bur to cut the cruciate cuts. After cruciate cuts are made all trials are removed. The wound is irrigated copiously with antibiotic solution and Water Pik and the actual components inserted into place using the aforementioned components, Consensus components, size 3 femur, 1 tibia, 1 patella, 10 insert standard with 2 batches of Sova antibiotic impregnated cement. After the cement has hardened and the components are found to have full range of motion with no instability, the tourniquet is deflated, total tourniquet time being 48 minutes at 300 mmHg pressure. Meticulous hemostasis achieved and 60 mL of combination of Exparel, 0.25% Marcaine plain and normal saline injected around the wound for extra pain control. Deep fascia approximated with running #2 Quill. Subcutaneous tissue approximated using interrupted running #2 and 4-0 Monocryl suture and Prineo, a sterile dressing and knee immobilizer. No drain utilized. ESTIMATED BLOOD LOSS: 200 mL COUNTS: Sponge and suture count correct. CONDITION: The patient tolerated the procedure well and left the operating room in satisfactory condition. PETR Becker, was present during he entire procedure to include patient positioning and the procedure. The medical necessity of a nurse practitioner respiratory assistant was indicated in this case due to the surgical complexity of the case itself. During the surgical case, the manager surgical was working the back table while my manager surgical PETR was directly assisting me. J. MD DAIANA Gardner/MANA , 02:31 PM , 02:55 PM
--- NOTE | 2018-03-29 15:10 | P.BOP ---
- Preoperative Diagnosis (1) Arthritis - Postoperative Diagnosis (1) Status post total left knee replacement Date of procedure: 03/29/18 Procedure: Left Total Knee Arthroplasty Implants: see implant record Anesthesia: spinal, other (LMA) Surgeon: Sanam Sharp MD Key Maker: Macy Morales ([facility]) Estimated blood loss (mL): 200 Tourniquet time (min): 49 (300 mmHg) Urine output (mL): 0 (no hernández) Pathology: none sent Condition: stable Disposition: PACU
[2018-03-29] MEDS ORDERED: fentaNYL Citrate Inj 100 MCG/2 ML Ampul ONE (15:15)
--- NOTE | 2018-03-29 15:19 | XR ---
EXAM DATE: 03/29/2018 3:16 PM EDT AGE/SEX: 67 years / Female INDICATIONS: Post op left total knee replacement. CLINICAL DATA: This is the patient's initial encounter. Patient reports that signs and symptoms have been present for 1 day and indicates a pain score of 5/10. MEDICAL/SURGICAL HISTORY: None. None. COMPARISON: No prior exams available for comparison. FINDINGS: AP and lateral views of the knee following arthroplasty reveals a prosthesis in anatomic alignment. F racture is not appreciated. Air is present within the joint. CONCLUSION: Status post total knee arthroplasty. Denys Jeter MD FACR Electronically signed by: Denys Jeter MD 03/29/2018 3:18 PM EDT
[2018-03-29] MEDS ORDERED: *Meperidine Inj 25 MG/ML Vial PERIprocedural Use ONLY ONE (15:25)
[2018-03-29] MEDS: Levothyroxine 75 MCG Tablet PO SCH (21:35)
[2018-03-29] MEDS: Glimepiride 2 MG Tablet PO SCH (21:50)
[2018-03-30] MEDS: Senna/Docusate Sodium 8.6/50 MG Tablet PO SCH ×3 (08:00→23:11)
[2018-03-30] MEDS: Multivitamin/Minerals Therapeutic Tablet PO SCH ×3 (08:00→23:11)
[2018-03-30] MEDS: Furosemide 20 MG Tablet PO SCH (08:41)
[2018-03-30] MEDS: Glimepiride 2 MG Tablet PO SCH ×2 (08:42→23:12)
[2018-03-30 09:54] LABS: Hematocrit 30.5 % (35.0-46.0); Hemoglobin 10.4 gm/dL (11.6-15.3)
--- NOTE | 2018-03-30 11:53 | P.PNOP ---
Subjective Interval history: Patient seen today stating she is having some discomfort in her knee. She was upset as she did not get her correct food order on time. Vital signs are stable and she is afebrile. She is neurovascularly intact to her toes. She is sitting up in bed. The dressing is dry and intact. Plan is for the patient to continue physical therapy today and anticoagulation therapy which is Coumadin. Plan for her to be discharged tomorrow to assisted facility if she is afebrile and has stable vital signs. Physical Exam Vital signs: Vital Signs 03/29/18 15:00 03/29/18 15:15 03/29/18 15:30 Temperature 97.6 F 97.6 F 97.6 F Pulse Rate 67 69 70 Respiratory Rate 14 14 14 Blood Pressure 132/58 L 129/58 L 131/61 Pulse Oximetry 99 100 100 03/29/18 15:45 03/29/18 16:00 03/29/18 16:30 Temperature 97.6 F 97.6 F 97.6 F Pulse Rate 74 72 69 Respiratory Rate 14 14 14 Blood Pressure 126/60 128/60 130/60 Pulse Oximetry 100 100 100 03/29/18 17:00 03/29/18 18:00 03/29/18 19:00 Temperature 97.6 F 97.6 F 97.6 F Pulse Rate 67 78 70 Respiratory Rate 14 14 14 Blood Pressure 128/60 130/60 126/61 Pulse Oximetry 100 100 99 03/29/18 20:00 03/30/18 00:00 03/30/18 04:00 Temperature 97.6 F 97.6 F 97.8 F Pulse Rate 70 71 62 Respiratory Rate 18 18 18 Blood Pressure 125/59 L 138/65 117/59 L Pulse Oximetry 93 L 93 L 97 03/30/18 08:00 Temperature 98.3 F Pulse Rate 67 Respiratory Rate 18 Blood Pressure 133/62 Pulse Oximetry 92 L Intake & Output 03/29/18 03/30/18 03/30/18 18:59 06:59 18:59 Intake Total 680 / 680 Balance 680 / 680 Weight 90.8 kg Intake: IV 200 / 200 Ancef Inj 1,000 MG In NS Inj 200 / 200 100 ML @ 200 mls/hr IV.SIG Q6H HELGA Rx#:[id number] Oral 480 / 480 Other: Date of Last Bowel Movement 03/28/18 Weight On Admission 90.8 kg Results - Labs CBC & Chem 7: 03/30/18 08:10 Laboratory Results - last 24 hr 03/29/18 03/30/18 21:49 08:10 Hgb 10.4 L Hct 30.5 L POC Glucose 215 H - Imaging Impressions Knee X-Ray 03/29/18 11:39 CONCLUSION: Status post total knee arthroplasty. Denys Jeter MD FACR
[2018-03-30 13:44] LABS: INR 1.4 Ratio
[2018-03-31 06:46] LABS: INR 1.4 Ratio; Prothrombin Time 13.9 sec (9.8-11.6)
[2018-03-31 06:53] LABS: Hematocrit 30.8 % (35.0-46.0); Hemoglobin 10.5 gm/dL (11.6-15.3)
--- NOTE | 2018-03-31 07:50 | P.PNOP ---
Subjective Interval history: Patient more comfortable today. No complaints. Dressing dry and intact. Able to do straight leg raise. She is neurovascularly intact. Physical Exam Vital signs: Vital Signs 03/30/18 08:00 03/30/18 12:00 03/30/18 14:21 Temperature 98.3 F 98.3 F Pulse Rate 67 67 Respiratory Rate 18 17 18 Blood Pressure 133/62 107/53 L Pulse Oximetry 92 L 94 L 03/30/18 14:42 03/30/18 16:00 03/30/18 18:36 Temperature 97.7 F Pulse Rate 77 Respiratory Rate 18 16 18 Blood Pressure 118/58 L Pulse Oximetry 96 03/30/18 20:25 03/31/18 00:00 03/31/18 04:55 Temperature 99.2 F 98.9 F 98.6 F Pulse Rate 87 82 78 Respiratory Rate 16 16 16 Blood Pressure 135/58 L 118/66 109/57 L Pulse Oximetry 97 94 L 94 L Intake & Output 03/30/18 03/31/18 03/31/18 18:59 06:59 18:59 Intake Total 1080 / 1080 480 / 480 Balance 1080 / 1080 480 / 480 Intake: Oral 1080 / 1080 480 / 480 Other: # Voids 2 1 Date of Last Bowel Movement 03/28/18 # Bowel Movements 0 0 Results - Labs CBC & Chem 7: 03/31/18 05:36 Laboratory Results - last 24 hr 03/30/18 03/30/18 03/30/18 08:10 13:00 23:19 Hgb 10.4 L Hct 30.5 L PT 14.0 H INR 1.4 POC Glucose 177 H 03/31/18 03/31/18 05:36 05:36 Hgb 10.5 L Hct 30.8 L PT 13.9 H INR 1.4 POC Glucose Assessment and Plan - Attending Attestation Attending Attestation: Plan is for patient continue physical therapy in house. Plan is to go to assisted facility on Thursday.
[2018-03-31] MEDS: Senna/Docusate Sodium 8.6/50 MG Tablet PO SCH ×2 (10:12→21:40)
[2018-03-31] MEDS: Multivitamin/Minerals Therapeutic Tablet PO SCH ×2 (10:12→21:40)
[2018-03-31] MEDS: Furosemide 20 MG Tablet PO SCH (10:12)
[2018-03-31] MEDS: Glimepiride 2 MG Tablet PO SCH ×2 (10:19→21:40)
[2018-03-31] MEDS: Levothyroxine 75 MCG Tablet PO SCH (21:39)
[2018-04-01 05:13] LABS: INR 1.4 Ratio; Prothrombin Time 14.2 sec (9.8-11.6)
[2018-04-01] MEDS: Glimepiride 2 MG Tablet PO SCH ×2 (08:48→22:59)
[2018-04-01] MEDS: Senna/Docusate Sodium 8.6/50 MG Tablet PO SCH ×2 (08:48→22:59)
[2018-04-01] MEDS: Multivitamin/Minerals Therapeutic Tablet PO SCH ×2 (08:48→22:59)
[2018-04-01] MEDS: Furosemide 20 MG Tablet PO SCH (08:48)
--- NOTE | 2018-04-01 12:28 | P.PNOP ---
Subjective Interval history: The patient is comfortable today with no complaints. Physical Exam Vital signs: Vital Signs 03/31/18 16:00 03/31/18 21:15 04/01/18 00:00 Temperature 97.2 F L 98.3 F Pulse Rate 54 L 56 L Respiratory Rate 16 16 15 Blood Pressure 118/57 L 126/61 Pulse Oximetry 96 92 L 04/01/18 00:20 Temperature 98.5 F Pulse Rate 52 L Respiratory Rate 16 Blood Pressure 131/61 Pulse Oximetry 92 L Intake & Output 03/31/18 04/01/18 04/01/18 18:59 06:59 18:59 Intake Total 480 / 480 480 / 480 Balance 480 / 480 480 / 480 Intake: Oral 480 / 480 480 / 480 Other: # Voids 1 1 Date of Last Bowel Movement 03/28/18 03/28/18 # Bowel Movements 0 0 - Constitutional no acute distress Results - Labs CBC & Chem 7: 03/31/18 05:36 Laboratory Results - last 24 hr 03/31/18 04/01/18 21:44 04:11 PT 14.2 H INR 1.4 POC Glucose 201 H - Procedures Wound is clean and dry. Patient currently in bed. No calf tenderness. Neurovascularly intact to toes. Plan is to continue physical therapy until [facility].
[2018-04-01] MEDS: Levothyroxine 75 MCG Tablet PO SCH (17:47)
[2018-04-02 07:14] LABS: INR 1.5 Ratio; Prothrombin Time 15.1 sec (9.8-11.6)
[2018-04-02] MEDS: Multivitamin/Minerals Therapeutic Tablet PO SCH ×2 (08:46→20:48)
[2018-04-02] MEDS: Senna/Docusate Sodium 8.6/50 MG Tablet PO SCH ×2 (08:47→20:48)
[2018-04-02] MEDS: Glimepiride 2 MG Tablet PO SCH ×2 (08:47→20:48)
[2018-04-02] MEDS: Furosemide 20 MG Tablet PO SCH (08:47)
--- NOTE | 2018-04-02 16:01 | P.PNOP ---
Subjective Interval history: Patient comfortable with no complaints today. Physical Exam Vital signs: Vital Signs 04/01/18 19:16 04/01/18 23:28 04/02/18 04:40 Temperature 97.8 F 98.1 F 97.9 F Pulse Rate 71 61 61 Respiratory Rate 18 17 17 Blood Pressure 111/63 139/60 112/58 L Pulse Oximetry 96 95 94 L 04/02/18 08:00 04/02/18 08:59 04/02/18 12:00 Temperature 98.1 F 97.7 F Pulse Rate 65 85 64 Respiratory Rate 16 16 Blood Pressure 114/58 L 109/69 117/62 Pulse Oximetry 93 L 92 L Intake & Output 04/01/18 04/02/18 04/02/18 18:59 06:59 18:59 Intake Total 240 / 240 Balance 240 / 240 Weight 90.8 kg Intake: Oral 240 / 240 Other: # Voids 5 4 Date of Last Bowel Movement 04/01/18 # Bowel Movements 2 0 Results - Labs CBC & Chem 7: 03/31/18 05:36 Laboratory Results - last 24 hr 04/02/18 06:09 PT 15.1 H INR 1.5 - Procedures Wound is clean and dry. Patient currently in bed. No calf tenderness. Neurovascularly intact to toes. Plan is to continue physical therapy until she goes to [facility]-way facility tomorrow.
[2018-04-02] MEDS: Levothyroxine 75 MCG Tablet PO SCH ×2 (17:49)
[2018-04-03 07:37] LABS: INR 1.6 Ratio; Prothrombin Time 16.4 sec (9.8-11.6)
[2018-04-03] MEDS: Glimepiride 2 MG Tablet PO SCH (08:21)
[2018-04-03] MEDS: Furosemide 20 MG Tablet PO SCH (08:22)
[2018-04-03] MEDS: Multivitamin/Minerals Therapeutic Tablet PO SCH (08:22)
[2018-04-03] MEDS: Senna/Docusate Sodium 8.6/50 MG Tablet PO SCH (08:22)
--- NOTE | 2018-04-26 11:38 | MD ---
cc: Roya Sharp MD DATE OF DISCHARGE: 04/03/2018 ADMITTING DIAGNOSIS: Osteoarthritic degeneration, left knee. DISCHARGE DIAGNOSIS: Osteoarthritic degeneration, left knee. DISCHARGE SUMMARY: This pleasant a 67-year-old female was admitted on 03/31/2018 at which time she underwent a left total knee arthroplasty. She received a course of prophylactic IV antibiotics and within 23 hours, started on anticoagulation therapy. She continued to improve. Remaining afebrile. Vital signs stable, neurovascularly intact. Began out of bed, tolerating food and fluids well and was discharged to a [facility] facility on the third postoperative day in good condition with instructions for continuation of care. Roya Sharp MD JRR/DL , 11:24 AM , 11:30 AM
== END 2018-04-03 11:50 ==
LOC: HSDC 07:55 → HSDI 07:55 → N06 20:21
PROVIDERS: ADMIT Surgery; ATTEND Surgery